=== PATIENT | female | born 1960 | race Caucasian/White ===

== ENCOUNTER 2019-05-31 06:32 | Day surgery (SDC) | payer MEDICARE, MEDICAID ==
[~2019-05-31] VITALS: Ht 154.9 cm; Wt 91.4 kg
[~2019-05-31 06:32] MED LIST: SODIUM CHLORIDE 0.9% 1,000 ML IV ONE
[2019-05-31] MEDS ORDERED: LIDOCAINE 4% 50 ML SOLUTION TP ONE (06:33)
[2019-05-31] MEDS ORDERED: BENZOCAINE 20% 50 MCG/SPRAY 57 GM TP ONE (06:33)
[2019-05-31] MEDS ORDERED: LIDOCAINE 2% 30 ML JELLY TP ONE (06:33)
[2019-05-31] MEDS ORDERED: ALBUTEROL SULFATE 2.5 MG/0.5 ML NEB SOLUTION NEB ONE (06:33)
[2019-05-31] MEDS ORDERED: ADV500 IH (06:56)
[2019-05-31] MEDS ORDERED: LISI-660 PO (06:56)
[2019-05-31] MEDS ORDERED: ATOR40TA28 PO (06:56)
[2019-05-31] MEDS ORDERED: BIMA12.5OS OU (06:56)
[2019-05-31] MEDS ORDERED: OS500 PO (06:56)
[2019-05-31] MEDS ORDERED: BACL10TA PO (06:56)
[2019-05-31] MEDS ORDERED: BUSP15 PO (06:56)
[2019-05-31] MEDS ORDERED: MULT-1259 PO (06:56)
[2019-05-31] MEDS ORDERED: CRAN500T PO (06:56)
[2019-05-31] MEDS ORDERED: GABA-533 PO (06:56)
[2019-05-31] MEDS ORDERED: ERYT3.5O8 OU (06:56)
[2019-05-31] MEDS ORDERED: TRAZ-220 PO (06:56)
[2019-05-31] MEDS ORDERED: FLUT16H NASAL (06:56)
[2019-05-31] MEDS ORDERED: METF-445 PO (06:56)
[2019-05-31] MEDS ORDERED: HYDR25TA PO (06:56)
[2019-05-31] MEDS ORDERED: MONT10TA21 PO (06:56)
[2019-05-31] MEDS ORDERED: ALBU8.5H8 IH (06:56)
[2019-05-31] MEDS ORDERED: DULO60CA44 PO (06:56)
[2019-05-31] MEDS ORDERED: FAMO20 PO (06:56)
[2019-05-31 07:25] LABS: GLUCOMETER DEV NAME(LOC) SDS.; GLUCOSE,POINT OF CARE 158 MG/DL (70-110)
[2019-05-31] MEDS ORDERED: MIDAZOLAM HCL 2 MG/2 ML VIAL ONE (08:14)
[2019-05-31] MEDS ORDERED: FentaNYL CITRATE-PF 100 MCG/2 ML VIAL ONE (08:15)
[2019-05-31] MEDS ORDERED: MethylPREDNISolone SOD SUCC 125 MG/2 ML VIAL IVP ONE (09:00)
[2019-05-31] MEDS ORDERED: MethylPREDNISolone SOD SUCC 40 MG/ML VIAL IVP ONE (09:15)
[2019-05-31] MEDS ORDERED: MethylPREDNISolone SOD SUCC 40 MG/ML VIAL ONE (09:20)
[2019-05-31] MEDS ORDERED: OXYGEN THERAPY IH SCH (20:00)
== END 2019-05-31 10:30 | disposition home or self-care (01) ==
LOC: SURGERY 06:32
PROVIDERS: ATTEND Internal Medicine Critical Care Medicine
DX: J38.4 Edema of larynx (principal); B37.0 Candidal stomatitis; J98.8 Other specified respiratory disorders; J44.9 Chronic obstructive pulmonary disease, unspecified; I10 Essential (primary) hypertension; E11.9 Type 2 diabetes mellitus without complications; Z79.899 Other long term (current) drug therapy; Z98.51 Tubal ligation status; Z98.890 Other specified postprocedural states
CPT/HCPCS: 31623; 31624; 71045; 82962; 87015; 87070; 87101; 87205; 87206; 87220; 88108; 88312; 93005; J2250; J2920; J3010; J7030